=== PATIENT | male | born 1975 | race Caucasian/White ===

== ENCOUNTER → 2017-07-02 | Outpatient (CLI) | payer OTHER | LOC: BMCIMAGING 15:26 | PROVIDERS: ATTEND Internal Medicine | DX: R05 Cough (principal) ==

== ENCOUNTER → 2018-03-07 | Outpatient (CLI) | payer OTHER | LOC: BMCIMAGING 09:20 | PROVIDERS: ATTEND Physician Assistant | DX: M25.562 Pain in left knee (principal) ==